=== PATIENT | female | born 1950 | race Native Hawaiian/Other Pacific Islander ===

== ENCOUNTER 2017-03-22 22:56 | Inpatient (IN) | payer OTHER ==
[~2017-03-22] VITALS: Ht 160 cm; Wt 51.5 kg
[~2017-03-22 22:56] MED LIST: BENZ100C8 PO; DEXL60CA4 PO; DONE5TAB PO; DULO30CA OR; GABA300C2 PO; JENTADUETO1 TA1 OR; LISI10TA11 PO; LOVASTATIN20 MG OR; LYRICA50 MG OR; METFORMIN ER1000 MG PO; ROSU10TA PO
[2017-03-22 23:14] VITALS: BP 173/63; TEMP 97.8
[2017-03-22] MEDS ORDERED: AMOX875T8 PO (23:15)
[2017-03-22] MEDS ORDERED: DONE5TAB PO (23:16)
[2017-03-23] VITALS (9 sets, daily range): BP systolic 121–165; BP diastolic 60–92; TEMP 98–98.7; Ht 160 cm; Wt 51.5 kg
[2017-03-23 00:46] LABS: PLATELET COUNT 217 K/uL (152-353)
[2017-03-23 01:24] LABS: POTASSIUM 3.5 mmol/L (3.6-5.2)
[2017-03-24] VITALS: BP 98/53; TEMP 99.1
[2017-03-24 04:00] VITALS: BP 126/56; TEMP 99.5
[2017-03-24 05:16] LABS: PLATELET COUNT 210 K/uL (152-353)
[2017-03-24 05:22] LABS: POTASSIUM 3.7 mmol/L (3.6-5.2); SODIUM 138 mmol/L (136-145)
[2017-03-24 08:00] VITALS: BP 112/67; TEMP 98.6
[2017-03-24 12:00] VITALS: BP 136/67; TEMP 99
[2017-03-24 16:00] VITALS: BP 149/85; TEMP 97.8
[2017-03-24 20:00] VITALS: BP 108/67; BP 145/71; TEMP 98.7; TEMP 98.8
[2017-03-25] VITALS: BP 131/56; TEMP 98.8
[2017-03-25 04:00] VITALS: BP 158/71; TEMP 98.8
[2017-03-25 06:00] LABS: PLATELET COUNT 211 K/uL (152-353)
[2017-03-25 06:21] LABS: POTASSIUM 3.6 mmol/L (3.6-5.2); SODIUM 137 mmol/L (136-145)
[2017-03-25 08:00] VITALS: BP 137/46; TEMP 98.7
[2017-03-25 12:00] VITALS: BP 154/60; TEMP 98.6
[2017-04-19] MEDS ORDERED: METFORMIN ER1000 MG PO (18:18)
== END 2017-03-25 13:35 | disposition home or self-care (01) | DRG 690 ==
LOC: ED 22:56 → MED/SURG 03-23 01:34
PROVIDERS: Family Medicine; ADMIT Specialist
DX: N39.0 Urinary tract infection, site not specified (principal); N30.01 Acute cystitis with hematuria; E13.65 Other specified diabetes mellitus with hyperglycemia; R11.11 Vomiting without nausea; F03.90 Unspecified dementia, unspecified severity, without behavioral disturbance, psychotic disturbance, mood disturbance, and anxiety; B96.20 Unspecified Escherichia coli [E. coli] as the cause of diseases classified elsewhere; N10 Acute pyelonephritis
CPT/HCPCS: 36415; 80048; 80053; 81000; 82533; 82607; 82947; 82948; 83036; 83735; 84100; 84443; 85027; 87040; 87077; 87086; 87088; 87186; 93005; 96365; 96372; 96375; 99284; J0690; J0696; J1720; J1815; J2550; J3411; J3475; J3490

== ENCOUNTER 2017-04-23 16:55 | Inpatient (IN) | payer OTHER ==
[~2017-04-23] VITALS: Ht 154.9 cm; Wt 53.6 kg
[~2017-04-23 16:55] MED LIST changes: +AMOX875T8 PO
[2017-04-23 17:09] VITALS: BP 166/92; TEMP 98.3
[2017-04-23 17:36] LABS: PLATELET COUNT 269 K/uL (152-353)
[2017-04-23 17:42] LABS: POTASSIUM 3.7 mmol/L (3.6-5.2)
[2017-04-23 19:35] VITALS: BP 130/56; TEMP 98.4
[2017-04-23 21:00] VITALS: BP 151/67; TEMP 97
[2017-04-23 21:59] VITALS: BP 151/67; TEMP 98.2; Ht 154.9 cm; Wt 53.6 kg
[2017-04-23 22:00] VITALS: BP 135/85
[2017-04-23 23:00] VITALS: BP 150/91
[2017-04-24] VITALS (13 sets, daily range): BP systolic 104–170; BP diastolic 43–75; TEMP 97.3–98.4
[2017-04-24 05:28] LABS: PLATELET COUNT 309 K/uL (152-353)
[2017-04-24 05:44] LABS: POTASSIUM 3.1 mmol/L (3.6-5.2)
[2017-04-24] MEDS ORDERED: GABA300C2 PO (18:16)
[2017-04-24] MEDS ORDERED: DONE5TAB PO (18:20)
[2017-04-25] VITALS (11 sets, daily range): BP systolic 137–161; BP diastolic 60–72; TEMP 98.5–99.1
[2017-04-25 06:38] LABS: PLATELET COUNT 300 K/uL (152-353)
[2017-04-25 07:40] LABS: POTASSIUM 3.8 mmol/L (3.6-5.2)
[2017-04-26 00:50] VITALS: BP 147/66; TEMP 98.5
[2017-04-26 04:00] VITALS: BP 151/62; TEMP 98.5
[2017-04-26 06:14] LABS: POTASSIUM 3.4 mmol/L (3.6-5.2)
[2017-04-26 06:33] LABS: PLATELET COUNT 274 K/uL (152-353)
[2017-04-26 08:00] VITALS: BP 162/73; TEMP 98.8
[2017-04-26 11:50] VITALS: BP 150/71; TEMP 98.6
[2017-04-26 16:00] VITALS: BP 149/58; TEMP 98.6
[2017-04-26 20:00] VITALS: BP 119/42; TEMP 98.5
[2017-04-27] VITALS: BP 132/47; TEMP 98.2
[2017-04-27 04:00] VITALS: BP 128/84; TEMP 98.3
[2017-04-27 06:20] LABS: PLATELET COUNT 254 K/uL (152-353)
[2017-04-27 06:39] LABS: POTASSIUM 3.6 mmol/L (3.6-5.2)
[2017-04-27 08:00] VITALS: BP 167/67; TEMP 98.6
[2017-04-27 12:00] VITALS: BP 139/62; TEMP 98.6
[2017-04-27] MEDS ORDERED: ALTOPREV20 MG PO (17:32)
[2017-04-27] MEDS ORDERED: NYST100016 TOP (19:56)
[2017-04-27] MEDS ORDERED: RISP0.25 PO (20:00)
[2017-04-27] MEDS ORDERED: ENOX40IN SC (20:01)
[2017-04-27] MEDS ORDERED: INSUINJP SC (20:04)
[2017-04-27] MEDS ORDERED: BENADRYL 50M50 MG/ML IV (20:06)
[2017-04-27] MEDS ORDERED: ONDA2INJ2 IV (20:07)
[2017-04-27] MEDS ORDERED: THIAMINE IJ (20:10)
== END 2017-04-27 18:28 | disposition other institution (70) | DRG 689 ==
LOC: ED 16:55 → ICU 18:35 → MED/SURG 04-25 15:19
PROVIDERS: ADMIT Family Medicine
DX: N39.0 Urinary tract infection, site not specified (principal); E11.00 Type 2 diabetes mellitus with hyperosmolarity without nonketotic hyperglycemic-hyperosmolar coma (NKHHC); E46 Unspecified protein-calorie malnutrition; B96.20 Unspecified Escherichia coli [E. coli] as the cause of diseases classified elsewhere; E86.0 Dehydration; F03.90 Unspecified dementia, unspecified severity, without behavioral disturbance, psychotic disturbance, mood disturbance, and anxiety; B35.4 Tinea corporis; L29.8 Other pruritus
CPT/HCPCS: 36415; 36591; 36600; 74022; 80053; 81000; 81002; 82805; 82947; 82948; 82962; 83735; 83880; 84100; 85027; 87077; 87086; 87088; 87186; 93005; 96372; 99284; J1200; J1650; J1815; J1940; J3475; J3480; J3490

== ENCOUNTER 2017-05-12 20:18 | Emergency (ER) | payer OTHER ==
[~2017-05-12] VITALS: Ht 162.6 cm; Wt 47.6 kg
[~2017-05-12 20:18] MED LIST changes: +ALTOPREV20 MG PO; +BENADRYL 50M50 MG/ML IV; +ENOX40IN SC; +INSUINJP SC; +NYST100016 TOP; +ONDA2INJ2 IV; +RISP0.25 PO; +THIAMINE IJ
[2017-05-12 21:00] LABS: PLATELET COUNT 263 K/uL (152-353)
[2017-05-12 21:05] LABS: POTASSIUM 3.8 mmol/L (3.6-5.2); SODIUM 134 mmol/L (136-145)
[2017-05-12] MEDS ORDERED: BUSP5TAB2 PO (21:09)
[2017-05-12] MEDS ORDERED: LIPITOR40 MG PO (21:10)
[2017-05-12] MEDS ORDERED: LEVO0.1224 PO (21:10)
[2017-05-12] MEDS ORDERED: RISP0.25 PO (21:10)
[2017-05-12] MEDS ORDERED: MEMANTINE HCL5 MG PO (21:11)
[2017-05-12] MEDS ORDERED: HYDROXYZ HCL50 MG PO (21:12)
[2017-05-12] MEDS ORDERED: PANTOPRAZOLE 40MG TA PO (21:13)
[2017-05-12] MEDS ORDERED: CELEXA10 MG PO (21:13)
[2017-05-12] MEDS ORDERED: METFORMIN HCL500 MG PO (21:13)
[2017-05-12] MEDS ORDERED: GABA300C2 PO (21:14)
[2017-05-12 21:23] LABS: PARTIAL THROMBOPLASTIN TIME 24.6 SECONDS (24.5-33.6)
[2017-05-12 21:52] VITALS: BP 172/80; TEMP 98.5
== END 2017-05-12 21:54 | disposition home or self-care (01) ==
LOC: ED 20:18
DX: R07.89 Other chest pain (principal); I44.4 Left anterior fascicular block
CPT/HCPCS: 36415; 80053; 82550; 83880; 84484; 85027; 85610; 85730; 93005; 99283

== ENCOUNTER 2017-05-26 11:14 | Inpatient (IN) | payer OTHER ==
[~2017-05-26] VITALS: Ht 154.9 cm; Wt 61.7 kg
[2017-05-26] VITALS (17 sets, daily range): BP systolic 87–119; BP diastolic 41–77; TEMP 98–99.1; Ht 154.9 cm; Wt 61.7 kg
[~2017-05-26 11:14] MED LIST changes: +BUSP5TAB2 PO; +CELEXA10 MG PO; +HYDROXYZ HCL50 MG PO; +LEVO0.1224 PO; +LIPITOR40 MG PO; +MEMANTINE HCL5 MG PO; +METFORMIN HCL500 MG PO; +PANTOPRAZOLE 40MG TA PO
[2017-05-26 12:06] LABS: PLATELET COUNT 207 K/uL (152-353)
[2017-05-26 12:41] LABS: POTASSIUM 3.3 mmol/L (3.6-5.2); SODIUM 134 mmol/L (136-145)
[2017-05-27] VITALS (23 sets, daily range): BP systolic 96–146; BP diastolic 51–129; TEMP 97.6–99.5
[2017-05-27 06:34] LABS: PLATELET COUNT 152 K/uL (152-353)
[2017-05-27 06:39] LABS: POTASSIUM 3.6 mmol/L (3.6-5.2)
[2017-05-28] VITALS (11 sets, daily range): BP systolic 131–160; BP diastolic 57–78; TEMP 97.8–99.7
[2017-05-28 12:47] LABS: PLATELET COUNT 166 K/uL (152-353)
[2017-05-28 13:14] LABS: POTASSIUM 3.4 mmol/L (3.6-5.2)
[2017-05-29] VITALS: BP 130/54; TEMP 100.8
[2017-05-29 04:00] VITALS: BP 129/61; TEMP 99.7
[2017-05-29 12:44] VITALS: BP 105/54; TEMP 98
[2017-05-29 17:08] VITALS: BP 133/67; TEMP 100.2
[2017-05-29 20:00] VITALS: BP 99/41; TEMP 99.9
[2017-05-30 00:08] VITALS: BP 98/65; TEMP 99.2
[2017-05-30 04:23] VITALS: BP 100/50; TEMP 99.7
[2017-05-30 06:32] LABS: PLATELET COUNT 186 K/uL (152-353)
[2017-05-30 06:43] LABS: POTASSIUM 3.5 mmol/L (3.6-5.2)
== END 2017-05-30 11:25 | disposition home or self-care (01) | DRG 872 ==
LOC: ED 11:14 → ICU 14:05 → MED/SURG 05-29 10:35
PROVIDERS: Internal Medicine; ADMIT Emergency Medicine
DX: A41.89 Other specified sepsis (principal); N39.0 Urinary tract infection, site not specified; E03.8 Other specified hypothyroidism; R41.82 Altered mental status, unspecified; I10 Essential (primary) hypertension; E11.9 Type 2 diabetes mellitus without complications; G30.8 Other Alzheimer's disease; F02.80 Dementia in other diseases classified elsewhere, unspecified severity, without behavioral disturbance, psychotic disturbance, mood disturbance, and anxiety; K21.9 Gastro-esophageal reflux disease without esophagitis; I95.89 Other hypotension; B96.1 Klebsiella pneumoniae [K. pneumoniae] as the cause of diseases classified elsewhere
CPT/HCPCS: 36415; 80048; 80053; 81000; 82550; 82553; 82948; 82962; 83735; 84484; 85027; 87077; 87086; 87088; 87186; 93005; 96365; 96366; 96372; 96374; 99285; J1815; J3475; J3490

== ENCOUNTER 2017-06-11 13:17 | Emergency (ER) | payer OTHER ==
[~2017-06-11] VITALS: Ht 154.9 cm; Wt 72.6 kg
[2017-06-11 13:22] VITALS: TEMP 98.4
[2017-06-11] MEDS ORDERED: DONE5TAB PO (13:41)
[2017-06-11 14:04] LABS: PLATELET COUNT 324 K/uL (152-353)
[2017-06-11 14:13] LABS: POTASSIUM 3.2 mmol/L (3.6-5.2)
[2017-06-11 15:26] VITALS: BP 136/74
== END 2017-06-11 15:27 | disposition home or self-care (01) ==
LOC: ED 13:17
DX: N11.8 Other chronic tubulo-interstitial nephritis (principal); L89.152 Pressure ulcer of sacral region, stage 2
CPT/HCPCS: 36415; 80053; 81000; 83880; 85027; 87086; 87088; 93005; 99283

== ENCOUNTER 2017-06-19 19:38 | Emergency (ER) | payer OTHER ==
[~2017-06-19] VITALS: Ht 154.9 cm; Wt 53.1 kg
[2017-06-19 19:52] VITALS: BP 142/64; TEMP 98.3
[2017-06-19] MEDS ORDERED: AMOX875T8 PO (20:12)
[2017-06-19 20:34] LABS: PLATELET COUNT 249 K/uL (152-353)
[2017-06-19 21:13] LABS: POTASSIUM 3.1 mmol/L (3.6-5.2)
== END 2017-06-19 21:03 | disposition left against medical advice (07) ==
LOC: ED 19:38
DX: E11.65 Type 2 diabetes mellitus with hyperglycemia (principal); M54.89 Other dorsalgia
CPT/HCPCS: 36415; 80053; 81000; 85027; 87088; 96372; 99283; J1815

== ENCOUNTER 2017-10-16 18:55 | Outpatient (CLI) | payer OTHER ==
[2017-10-16] MEDS ORDERED: GRALISE300 MG PO (19:36)
[2017-10-16] MEDS ORDERED: LEXAPRO10 MG PO (19:36)
== END 2017-10-16 19:00 | disposition short-term general hospital (02) ==
LOC: AMB 18:55
DX: E11.649 Type 2 diabetes mellitus with hypoglycemia without coma (principal)
CPT/HCPCS: A0425; A0427

== ENCOUNTER 2017-10-23 19:32 | Emergency (ER) | payer OTHER ==
[~2017-10-23] VITALS: Ht 160 cm; Wt 54.4 kg
[~2017-10-23 19:32] MED LIST changes: +GRALISE300 MG PO; +LEXAPRO10 MG PO
[2017-10-23 20:24] LABS: PLATELET COUNT 383 K/uL (152-353)
[2017-10-23 20:35] LABS: POTASSIUM 3.9 mmol/L (3.6-5.2)
[2017-10-23 22:08] VITALS: BP 142/91; TEMP 98.4
== END 2017-10-23 22:08 | disposition home or self-care (01) ==
LOC: ED 19:32
DX: E11.65 Type 2 diabetes mellitus with hyperglycemia (principal); F03.90 Unspecified dementia, unspecified severity, without behavioral disturbance, psychotic disturbance, mood disturbance, and anxiety; Z91.81 History of falling; W17.89XA Other fall from one level to another, initial encounter; Y92.89 Other specified places as the place of occurrence of the external cause
CPT/HCPCS: 36415; 80053; 83735; 85027; 99283

== ENCOUNTER 2017-10-30 21:38 | Inpatient (IN) | payer OTHER ==
[~2017-10-30] VITALS: Ht 160 cm; Wt 55.1 kg
[2017-10-30 21:42] VITALS: BP 195/95; TEMP 97.3
[2017-10-30 22:20] LABS: POTASSIUM 3.6 mmol/L (3.6-5.2)
[2017-10-30 22:52] LABS: PLATELET COUNT 348 K/uL (152-353)
[2017-10-31 03:24] VITALS: BP 184/73; TEMP 97.9; Ht 160 cm; Wt 55.1 kg
--- NOTE | 2017-10-31 03:52 | NUR ---
RECEIVED PT FROM ER BY STRETCHER. PT LETHARGIC DOES NOT RESPOND TO VOICE. DOES NOT OPEN EYES WHEN NAME IS CALLED. PT HAS LITTLE CATH PUT IN IN ER. PT HAS DECUBITUS ULCER ON COCCYX WHICH HAS BEEN DRESSED BY ER PRIOR TO BRINGING TO FLOOR. PT NOT ACCOMPANIED BY ANY FAMILY.
--- NOTE | 2017-10-31 03:56 | NUR ---
10/31/17 0255: DR THAKKAR CALLED HERE INQUIRING ABOUT PT. ORDERS RECEIVED.
[2017-10-31 04:00] VITALS: BP 184/73; TEMP 97.9
[2017-10-31 08:23] VITALS: BP 175/66; TEMP 98.1
[2017-10-31 12:00] VITALS: BP 169/67; TEMP 97.8
[2017-10-31 16:00] VITALS: BP 161/63; TEMP 97.6
[2017-10-31 20:00] VITALS: BP 142/92; TEMP 99.9
[2017-11-01] VITALS: BP 151/65; TEMP 99.3
[2017-11-01 04:00] VITALS: BP 172/66; TEMP 98.4
[2017-11-01 08:00] VITALS: BP 190/73; TEMP 98.1
[2017-11-01 12:00] VITALS: BP 170/76; TEMP 98
--- NOTE | 2017-11-01 13:00 | NUR ---
PT CHANGED WITH LOOSE STOOL NOTED. NEW LINENS CHANGED AND PT BATHED. NAD NOTED. PT TOLERATED WELL.
--- NOTE | 2017-11-01 13:00 | NUR ---
WOUND TO SACRUM ASSESSED. PINK EDGES NOTED WITH RED WOUND BED. DUODERM APPLIED. PT TOLERATED WELL.
[2017-11-01 16:00] VITALS: BP 174/74; TEMP 98.3
[2017-11-01 20:29] VITALS: BP 161/67; TEMP 98.9
[2017-11-02 00:14] VITALS: BP 163/76; TEMP 99
[2017-11-02 04:00] VITALS: BP 176/68; TEMP 98.6
[2017-11-02 05:18] LABS: PLATELET COUNT 255 K/uL (152-353)
[2017-11-02 05:46] LABS: POTASSIUM 3.7 mmol/L (3.6-5.2)
[2017-11-02 08:00] VITALS: BP 128/49; TEMP 98.9
[2017-11-02 12:00] VITALS: BP 183/80; TEMP 97.9
[2017-11-02 16:00] VITALS: BP 186/86; TEMP 98.7
--- NOTE | 2017-11-02 18:56 | NUR ---
AT 1123 THIS AM PT HAD MASSIVE LOOSE LIQUID BROWN BM. PT WAS CLEANSED VERY WELL ALONG WITH FULL BED BATH. STAGE 1 DECUBITIS TO SACRAM WAS CLEANSED WELL AND IRRIGATED WITH STERILE 0.9% NS AND AIR DRIED THEN DUODERM APPLIED. ATTENDS PLACED ON PT WELL ALL CLEAN LINENS AND DRAW SHEET WITH CHUX. CALL LIGHT WITHIN REACH AND NO COMPLAINTS NOTED AT THIS TIME.
[2017-11-02 20:00] VITALS: BP 182/76; TEMP 98.1
[2017-11-03] VITALS: BP 192/72; TEMP 99.2
[2017-11-03 04:00] VITALS: BP 163/63; TEMP 99.6
[2017-11-03 08:00] VITALS: BP 174/74; TEMP 98.7
--- NOTE | 2017-11-03 11:24 | NUR ---
PATIENT SON HAD BEEN IN CONTACT THE PCP AND THE [facility] CONCERNING PRISON PLACEMENT. THE DECISION WAS MADE TO MOVE THE PATIENT TO THE [facility] FOR DETENTION CARE PLACEMENT.
[2017-11-03 12:00] VITALS: BP 172/68; TEMP 99.6
--- NOTE | 2017-11-03 14:04 | NUR ---
1330 RESPORT CALLED TO HERNAN AT [facility]. [id number] PT TANSFERRED TO [facility] VIA BED. ASSISTED TO ROOM AND BED. PT TOLERATED WELL.
== END 2017-11-03 13:45 | DRG 57 ==
LOC: ED 21:38 → MED/SURG 10-31 01:50
PROVIDERS: Internal Medicine
DX: G30.8 Other Alzheimer's disease (principal); N39.0 Urinary tract infection, site not specified; R41.82 Altered mental status, unspecified; F02.80 Dementia in other diseases classified elsewhere, unspecified severity, without behavioral disturbance, psychotic disturbance, mood disturbance, and anxiety; E11.42 Type 2 diabetes mellitus with diabetic polyneuropathy; E03.8 Other specified hypothyroidism; K21.9 Gastro-esophageal reflux disease without esophagitis; E78.00 Pure hypercholesterolemia, unspecified; F41.8 Other specified anxiety disorders; D64.89 Other specified anemias; L89.152 Pressure ulcer of sacral region, stage 2; R10.13 Epigastric pain
CPT/HCPCS: 36415; 51702; 80053; 80307; 81000; 82948; 83605; 83735; 85027; 87040; 94760; 96372; 99283; J1650; J1815; J3411; J3490

== ENCOUNTER 2017-11-03 15:05 | Inpatient (IN) | payer OTHER ==
[2017-11-04 05:48] LABS: PLATELET COUNT 238 K/uL (152-353)
[2017-11-04 06:21] LABS: POTASSIUM 3.8 mmol/L (3.6-5.2)
[2017-11-14 17:28] LABS: PLATELET COUNT 223 K/uL (152-353)
[2017-11-14 17:45] LABS: POTASSIUM 4.4 mmol/L (3.6-5.2)
== END 2017-11-26 10:21 | disposition still patient (30) ==
LOC: PAVB 15:05
PROVIDERS: ADMIT Internal Medicine
DX: F03.91 Unspecified dementia, unspecified severity, with behavioral disturbance (principal); R48.8 Other symbolic dysfunctions; M25.512 Pain in left shoulder; M62.81 Muscle weakness (generalized); N39.0 Urinary tract infection, site not specified; E11.42 Type 2 diabetes mellitus with diabetic polyneuropathy; E78.00 Pure hypercholesterolemia, unspecified; I10 Essential (primary) hypertension; M25.012 Hemarthrosis, left shoulder
CPT/HCPCS: 80053; 80061; 81000; 82306; 83036; 84443; 85027; 87077; 87081; 87086; 87088; 87186

== ENCOUNTER 2017-11-26 10:31 | Inpatient (IN) | payer OTHER ==
[2017-12-09] MEDS ORDERED: LIPITOR40 MG PO (00:21)
[2017-12-09] MEDS ORDERED: [UNRECOGNIZED DRUG - OTHER] PO (00:23)
[2017-12-09] MEDS ORDERED: CALCIUM PO (00:23)
[2017-12-09] MEDS ORDERED: INSUINJP SC (00:24)
[2017-12-09] MEDS ORDERED: METF500T PO (00:25)
[2017-12-09] MEDS ORDERED: NAMZARIC 28-101 CAP PO (00:26)
[2017-12-09] MEDS ORDERED: OMEP40CA PO (00:27)
[2017-12-09] MEDS ORDERED: MULTIVITAMIN (00:28)
[2017-12-09] MEDS ORDERED: MIRALAX3350 N1 (00:29)
[2017-12-09] MEDS ORDERED: VITAMIN C1 CH1 PO (00:30)
[2017-12-09] MEDS ORDERED: ZINC220 MG (00:32)
[2017-12-09] MEDS ORDERED: PROTEINE1 PO (00:33)
[2017-12-09] MEDS ORDERED: GLUCERN1 (00:37)
[2017-12-09] MEDS ORDERED: ASCO500T18 PO (00:41)
== END 2017-12-26 09:37 | disposition still patient (30) ==
LOC: PAVB 10:31
PROVIDERS: ADMIT Internal Medicine
DX: F03.91 Unspecified dementia, unspecified severity, with behavioral disturbance (principal); R48.8 Other symbolic dysfunctions; M25.512 Pain in left shoulder; M62.81 Muscle weakness (generalized); N39.0 Urinary tract infection, site not specified; E11.42 Type 2 diabetes mellitus with diabetic polyneuropathy; E78.00 Pure hypercholesterolemia, unspecified; I10 Essential (primary) hypertension; M25.012 Hemarthrosis, left shoulder

== ENCOUNTER 2017-12-08 14:35 | Inpatient (IN) | payer OTHER ==
[~2017-12-08] VITALS: Ht 162.6 cm; Wt 54.0 kg
[2017-12-08 14:35] VITALS: BP 159/59; TEMP 98
[2017-12-08 15:07] LABS: PLATELET COUNT 206 K/uL (152-353)
[2017-12-08 15:25] LABS: POTASSIUM 4.5 mmol/L (3.6-5.2); SODIUM 138 mmol/L (136-145)
[2017-12-08 22:11] VITALS: BP 182/69; TEMP 98.9; Ht 162.6 cm; Wt 54.0 kg
[2017-12-09] VITALS: BP 154/67; TEMP 98.8
[2017-12-09] MEDS ORDERED: LIPITOR40 MG PO (00:21)
[2017-12-09] MEDS ORDERED: CALCIUM PO (00:23)
[2017-12-09] MEDS ORDERED: [UNRECOGNIZED DRUG - OTHER] PO (00:23)
[2017-12-09] MEDS ORDERED: INSUINJP SC (00:24)
[2017-12-09] MEDS ORDERED: METF500T PO (00:25)
[2017-12-09] MEDS ORDERED: NAMZARIC 28-101 CAP PO (00:26)
[2017-12-09] MEDS ORDERED: OMEP40CA PO (00:27)
[2017-12-09] MEDS ORDERED: MULTIVITAMIN (00:28)
[2017-12-09] MEDS ORDERED: MIRALAX3350 N1 (00:29)
[2017-12-09] MEDS ORDERED: VITAMIN C1 CH1 PO (00:30)
[2017-12-09] MEDS ORDERED: ZINC220 MG (00:32)
[2017-12-09] MEDS ORDERED: PROTEINE1 PO (00:33)
[2017-12-09] MEDS ORDERED: GLUCERN1 (00:37)
[2017-12-09] MEDS ORDERED: ASCO500T18 PO (00:41)
[2017-12-09 03:50] VITALS: BP 173/78; TEMP 98.9
[2017-12-09 08:03] VITALS: BP 159/58; TEMP 98.2
[2017-12-09 12:22] VITALS: BP 134/57; TEMP 98.9
[2017-12-09 16:00] VITALS: BP 147/63; TEMP 98.4
[2017-12-09 20:08] VITALS: BP 153/64; TEMP 98.1
[2017-12-10] VITALS: BP 148/63; TEMP 97.7
[2017-12-10 04:25] VITALS: BP 172/60; TEMP 98
[2017-12-10 08:00] VITALS: BP 152/90; TEMP 98
[2017-12-10 12:00] VITALS: BP 164/63; TEMP 99.2
[2017-12-10 16:00] VITALS: BP 161/65; TEMP 97.3
[2017-12-10 20:12] VITALS: BP 183/72; TEMP 99
[2017-12-11 00:26] VITALS: BP 160/75; TEMP 98.1
[2017-12-11 04:00] VITALS: BP 155/59; TEMP 99
[2017-12-11 08:00] VITALS: BP 149/55; TEMP 98.7
[2017-12-11 12:00] VITALS: BP 157/58; TEMP 98.8
[2017-12-11 16:00] VITALS: BP 165/63; BP 206/74; TEMP 98.2; TEMP 98.4
[2017-12-11 20:03] VITALS: BP 140/58; TEMP 98.4
[2017-12-12] VITALS: BP 166/62; TEMP 99.3
[2017-12-12 04:00] VITALS: BP 172/69; TEMP 97.4
[2017-12-12 05:19] LABS: PLATELET COUNT 188 K/uL (152-353)
[2017-12-12 05:24] LABS: POTASSIUM 3.5 mmol/L (3.6-5.2)
[2017-12-12 08:00] VITALS: BP 137/54; TEMP 98.8
[2017-12-12 12:00] VITALS: BP 151/58
== END 2017-12-12 13:00 | DRG 100 ==
LOC: ED 14:35 → MED/SURG 17:45
PROVIDERS: Internal Medicine
DX: G40.89 Other seizures (principal); G93.49 Other encephalopathy; N39.0 Urinary tract infection, site not specified; G30.8 Other Alzheimer's disease; F02.80 Dementia in other diseases classified elsewhere, unspecified severity, without behavioral disturbance, psychotic disturbance, mood disturbance, and anxiety; I10 Essential (primary) hypertension; K21.9 Gastro-esophageal reflux disease without esophagitis; E03.8 Other specified hypothyroidism; E11.65 Type 2 diabetes mellitus with hyperglycemia; B96.20 Unspecified Escherichia coli [E. coli] as the cause of diseases classified elsewhere
CPT/HCPCS: 36415; 80048; 80053; 81000; 84484; 85027; 87077; 87086; 87088; 87186; 93005; J0696; J0744; J1650; J1815; J3490

== ENCOUNTER 2017-12-14 15:40 | Outpatient (CLI) | payer OTHER ==
[~2017-12-14 15:40] MED LIST changes: +ASCO500T18 PO; +CALCIUM PO; +GLUCERN1; +METF500T PO; +MIRALAX3350 N1; +MULTIVITAMIN; +NAMZARIC 28-101 CAP PO; +OMEP40CA PO; +PROTEINE1 PO; +VITAMIN C1 CH1 PO; +ZINC220 MG; +[UNRECOGNIZED DRUG - OTHER] PO
== END 2017-12-14 19:44 | disposition home or self-care (01) ==
LOC: RESP 15:40
DX: R56.9 Unspecified convulsions (principal)

== ENCOUNTER 2017-12-16 04:26 | Outpatient (CLI) | payer OTHER | END 2017-12-16 22:14 | disposition home or self-care (01) | LOC: LAB 04:26 | DX: E55.9 Vitamin D deficiency, unspecified (principal) | CPT/HCPCS: 82306 ==

== ENCOUNTER 2017-12-26 06:19 | Outpatient (CLI) | payer OTHER | END 2017-12-26 19:50 | disposition home or self-care (01) | LOC: LAB 06:19 | DX: Z51.81 Encounter for therapeutic drug level monitoring (principal) | CPT/HCPCS: 80185 ==

== ENCOUNTER 2017-12-26 12:20 | Inpatient (IN) | payer OTHER | END 2018-01-26 08:50 | disposition still patient (30) | LOC: PAVB 12:20 | PROVIDERS: ADMIT Internal Medicine ==

== ENCOUNTER 2018-01-26 09:15 | Inpatient (IN) | payer OTHER | END 2018-02-25 08:36 | disposition still patient (30) | LOC: PAVB 09:15 | PROVIDERS: ADMIT Internal Medicine ==

== ENCOUNTER 2018-01-31 04:23 | Outpatient (CLI) | payer OTHER | END 2018-01-31 22:11 | disposition home or self-care (01) | LOC: LAB 04:23 | DX: E11.9 Type 2 diabetes mellitus without complications (principal) | CPT/HCPCS: 36415; 83036 ==

== ENCOUNTER 2018-02-15 06:11 | Outpatient (CLI) | payer OTHER | END 2018-02-15 19:34 | disposition home or self-care (01) | LOC: LAB 06:11 | DX: G40.909 Epilepsy, unspecified, not intractable, without status epilepticus (principal) | CPT/HCPCS: 80185 ==

== ENCOUNTER 2018-02-21 13:40 | Outpatient (CLI) | payer OTHER | END 2018-02-21 21:08 | disposition home or self-care (01) | LOC: LAB 13:40 | DX: Z51.81 Encounter for therapeutic drug level monitoring (principal) | CPT/HCPCS: 80185 ==

== ENCOUNTER 2018-02-25 08:46 | Inpatient (IN) | payer OTHER | END 2018-03-28 11:08 | disposition still patient (30) | LOC: PAVB 08:46 | PROVIDERS: ADMIT Internal Medicine ==

== ENCOUNTER 2018-03-08 05:45 | Outpatient (CLI) | payer OTHER | END 2018-03-08 22:58 | disposition home or self-care (01) | LOC: LAB 05:45 | DX: Z51.81 Encounter for therapeutic drug level monitoring (principal) | CPT/HCPCS: 36415; 80185 ==

== ENCOUNTER 2018-03-28 11:39 | Inpatient (IN) | payer OTHER | END 2018-04-28 13:45 | disposition still patient (30) | LOC: PAVB 11:39 | PROVIDERS: ADMIT Internal Medicine ==

== ENCOUNTER 2018-03-29 11:30 | Outpatient (CLI) | payer OTHER | END 2018-03-29 21:35 | disposition home or self-care (01) | LOC: LAB 11:30 | DX: G40.909 Epilepsy, unspecified, not intractable, without status epilepticus (principal) | CPT/HCPCS: 80185 ==

== ENCOUNTER 2018-04-28 13:56 | Inpatient (IN) | payer OTHER | END 2018-05-26 11:42 | disposition still patient (30) | LOC: PAVB 13:56 | PROVIDERS: ADMIT Internal Medicine ==

== ENCOUNTER 2018-04-29 05:23 | Outpatient (CLI) | payer OTHER | END 2018-04-29 23:01 | disposition home or self-care (01) | LOC: LAB 05:23 | DX: E11.9 Type 2 diabetes mellitus without complications (principal); Z79.899 Other long term (current) drug therapy | CPT/HCPCS: 80185; 83036 ==

== ENCOUNTER 2018-05-02 09:54 | Outpatient (CLI) | payer OTHER ==
[2018-05-02 10:35] LABS: PLATELET COUNT 215 K/uL (152-353)
[2018-05-02 10:45] LABS: POTASSIUM 4.4 mmol/L (3.6-5.2)
== END 2018-05-02 19:46 | disposition home or self-care (01) ==
LOC: LAB 09:54
PROVIDERS: Internal Medicine
DX: I10 Essential (primary) hypertension (principal); E11.21 Type 2 diabetes mellitus with diabetic nephropathy; E03.9 Hypothyroidism, unspecified; E55.9 Vitamin D deficiency, unspecified
CPT/HCPCS: 80053; 82306; 83036; 84443; 85027

== ENCOUNTER 2018-05-26 11:58 | Inpatient (IN) | payer OTHER ==
[2018-06-09] MEDS ORDERED: PROTEINE1 PO (00:56)
[2018-06-09] MEDS ORDERED: GLUCERNA CAL PO (00:59)
[2018-06-09] MEDS ORDERED: PHENYTOIN EX100 MG PO (01:10)
[2018-06-09] MEDS ORDERED: [UNRECOGNIZED DRUG - OTHER] PO ×2 (01:14→01:15)
[2018-06-09] MEDS ORDERED: LEXAPRO10 MG PO (01:51)
[2018-06-09] MEDS ORDERED: LEVOXYL PO (01:53)
[2018-06-09] MEDS ORDERED: NAMZARIC 28-101 CAP PO (01:58)
== END 2018-06-26 11:36 | disposition still patient (30) ==
LOC: PAVB 11:58
PROVIDERS: ADMIT Internal Medicine
CPT/HCPCS: 81000; 87088

== ENCOUNTER 2018-06-08 20:47 | Inpatient (IN) | payer OTHER ==
[~2018-06-08] VITALS: Ht 160 cm; Wt 54.7 kg
[2018-06-09 00:19] LABS: PLATELET COUNT 265 K/uL (152-353)
[2018-06-09 00:32] VITALS: BP 128/57; TEMP 98.8; Ht 160 cm; Wt 54.7 kg
[2018-06-09 00:32] LABS: POTASSIUM 4.8 mmol/L (3.6-5.2)
[2018-06-09] MEDS ORDERED: PROTEINE1 PO (00:56)
[2018-06-09] MEDS ORDERED: GLUCERNA CAL PO (00:59)
[2018-06-09] MEDS ORDERED: PHENYTOIN EX100 MG PO (01:10)
[2018-06-09] MEDS ORDERED: [UNRECOGNIZED DRUG - OTHER] PO ×2 (01:14→01:15)
[2018-06-09] MEDS ORDERED: LEXAPRO10 MG PO (01:51)
[2018-06-09] MEDS ORDERED: LEVOXYL PO (01:53)
[2018-06-09] MEDS ORDERED: NAMZARIC 28-101 CAP PO (01:58)
[2018-06-09 04:00] VITALS: BP 141/54; TEMP 98.7
[2018-06-09 08:11] VITALS: BP 138/59; TEMP 97.9
[2018-06-09 12:15] VITALS: BP 155/68; TEMP 100.1
[2018-06-09 16:07] VITALS: BP 155/66; TEMP 98.8
[2018-06-09 20:07] VITALS: BP 156/71; TEMP 99.1
[2018-06-10 00:10] VITALS: BP 154/74; TEMP 97
[2018-06-10 04:00] VITALS: BP 147/56; TEMP 97.1
[2018-06-10 08:09] VITALS: BP 157/70; TEMP 98
[2018-06-10 12:11] VITALS: BP 158/66; TEMP 98.2
[2018-06-10 16:02] VITALS: BP 153/65; TEMP 98.5
[2018-06-10 20:00] VITALS: BP 153/69; TEMP 98.4
[2018-06-11] VITALS: BP 133/57; TEMP 98.3
[2018-06-11 04:00] VITALS: BP 135/56; TEMP 98.4
[2018-06-11 08:00] VITALS: BP 133/64; TEMP 98.6
[2018-06-11 12:00] VITALS: BP 133/64; BP 99/63; TEMP 97.9; TEMP 98.6
[2018-06-11 16:00] VITALS: BP 109/73; TEMP 98.8
[2018-06-11 20:00] VITALS: BP 158/68; TEMP 98.9
[2018-06-12] VITALS: BP 147/66; TEMP 97.7
[2018-06-12 04:00] VITALS: BP 14/65; TEMP 98.4
[2018-06-12 08:00] VITALS: BP 103/76; TEMP 98.3
[2018-06-12 12:00] VITALS: BP 152/76; TEMP 98.2
[2018-06-12 16:00] VITALS: BP 153/69; TEMP 98
[2018-06-12 20:00] VITALS: BP 162/71; TEMP 98.2
[2018-06-13] VITALS: BP 145/89; TEMP 98.7
[2018-06-13 04:00] VITALS: BP 153/77; TEMP 98.8
[2018-06-13 08:00] VITALS: BP 159/68; TEMP 98.1
[2018-06-13 16:00] VITALS: BP 134/61; TEMP 98.2
[2018-06-13 20:00] VITALS: BP 147/66; TEMP 98.6
[2018-06-14] VITALS: BP 147/68; TEMP 98.4
[2018-06-14 04:00] VITALS: BP 156/69; TEMP 98.8
[2018-06-14 08:00] VITALS: BP 169/72; TEMP 96.6
[2018-06-14 12:00] VITALS: BP 155/76; TEMP 98.3
== END 2018-06-14 13:50 | DRG 872 ==
LOC: LAB 20:47 → MED/SURG 23:31
PROVIDERS: ADMIT Internal Medicine
DX: A41.9 Sepsis, unspecified organism (principal); N39.0 Urinary tract infection, site not specified; B96.20 Unspecified Escherichia coli [E. coli] as the cause of diseases classified elsewhere; R41.82 Altered mental status, unspecified; G30.8 Other Alzheimer's disease; F02.80 Dementia in other diseases classified elsewhere, unspecified severity, without behavioral disturbance, psychotic disturbance, mood disturbance, and anxiety; I10 Essential (primary) hypertension; E11.9 Type 2 diabetes mellitus without complications
CPT/HCPCS: 80053; 81000; 83605; 85027; 87040; 87077; 87086; 87088; 87186; J1956; J0696; J2405; J3490

== ENCOUNTER 2018-06-26 11:48 | Inpatient (IN) | payer OTHER ==
[~2018-06-26 11:48] MED LIST changes: +GLUCERNA CAL PO; +LEVOXYL PO; +PHENYTOIN EX100 MG PO; +[UNRECOGNIZED DRUG - OTHER] PO
== END 2018-07-26 12:44 | disposition still patient (30) ==
LOC: PAVB 11:48
PROVIDERS: ADMIT Internal Medicine
CPT/HCPCS: 36415; 80185; 84443

== ENCOUNTER 2018-07-26 13:32 | Inpatient (IN) | payer OTHER | END 2018-08-26 08:41 | disposition still patient (30) | LOC: PAVB 13:32 | PROVIDERS: ADMIT Internal Medicine | DX: Z51.89 Encounter for other specified aftercare (principal) ==

== ENCOUNTER 2018-08-01 06:57 | Outpatient (CLI) | payer OTHER | END 2018-08-01 19:27 | disposition home or self-care (01) | LOC: LAB 06:57 | DX: E11.9 Type 2 diabetes mellitus without complications (principal) | CPT/HCPCS: 83036 ==

== ENCOUNTER 2018-08-26 08:51 | Inpatient (IN) | payer OTHER | END 2018-09-25 09:41 | disposition still patient (30) | LOC: PAVB 08:51 | PROVIDERS: ADMIT Internal Medicine ==

== ENCOUNTER 2018-08-27 19:20 | Inpatient (IN) | payer OTHER ==
[~2018-08-27] VITALS: Ht 160 cm; Wt 54.6 kg
[2018-08-27 19:20] VITALS: BP 134/58; TEMP 97.7
[2018-08-27 20:28] LABS: PLATELET COUNT 316 K/uL (152-353)
[2018-08-28] VITALS (9 sets, daily range): BP systolic 109–153; BP diastolic 48–93; TEMP 97.6–100.5; Ht 160 cm; Wt 54.6 kg
[2018-08-29] VITALS: BP 153/63; TEMP 100.5
[2018-08-29 04:11] VITALS: BP 145/69; TEMP 99.9
[2018-08-29 08:00] VITALS: BP 149/59; TEMP 100.2
[2018-08-29 12:00] VITALS: BP 185/81; TEMP 98.9
[2018-08-29 16:00] VITALS: BP 152/95; TEMP 98.6
[2018-08-29 20:00] VITALS: BP 188/84; TEMP 98.6
[2018-08-30] VITALS: BP 151/82; TEMP 98.5
[2018-08-30 04:00] VITALS: BP 180/73; TEMP 99.5
[2018-08-30 08:00] VITALS: BP 153/66; TEMP 98.9
[2018-08-30 12:00] VITALS: BP 142/69; TEMP 98.3
[2018-08-30 16:00] VITALS: BP 153/63; TEMP 99.8
[2018-08-30 20:00] VITALS: BP 165/60; TEMP 98.2
[2018-08-31] VITALS (7 sets, daily range): BP systolic 145–175; BP diastolic 51–75; TEMP 98.4–100.5
[2018-09-01 04:00] VITALS: BP 190/66; TEMP 98.9
[2018-09-01 08:00] VITALS: BP 158/72; TEMP 98.8
[2018-09-01 12:09] VITALS: BP 169/68; TEMP 98.4
[2018-09-01 16:05] VITALS: BP 154/69; TEMP 98.2
== END 2018-09-01 16:30 | DRG 690 ==
LOC: ED 19:20 → MED/SURG 08-28 01:15
PROVIDERS: Family Medicine; ADMIT Internal Medicine
DX: N39.0 Urinary tract infection, site not specified (principal); G40.802 Other epilepsy, not intractable, without status epilepticus; E89.0 Postprocedural hypothyroidism; G30.8 Other Alzheimer's disease; F02.80 Dementia in other diseases classified elsewhere, unspecified severity, without behavioral disturbance, psychotic disturbance, mood disturbance, and anxiety; E11.22 Type 2 diabetes mellitus with diabetic chronic kidney disease; I12.9 Hypertensive chronic kidney disease with stage 1 through stage 4 chronic kidney disease, or unspecified chronic kidney disease; N18.2 Chronic kidney disease, stage 2 (mild); B95.2 Enterococcus as the cause of diseases classified elsewhere
CPT/HCPCS: 36415; 80053; 80202; 81000; 83630; 85027; 87015; 87045; 87324; 87328; 87329; 87449; 87899; 96360; 96361; 96365; 96367; 96375; 99284; J1956; J3370; J3490

== ENCOUNTER 2018-09-25 09:54 | Inpatient (IN) | payer OTHER | END 2018-10-26 10:38 | disposition still patient (30) | LOC: PAVB 09:54 | PROVIDERS: ADMIT Internal Medicine ==

== ENCOUNTER 2018-10-01 11:26 | Outpatient (CLI) | payer OTHER | END 2018-10-01 23:59 | disposition home or self-care (01) | LOC: LAB 11:26 | DX: G40.909 Epilepsy, unspecified, not intractable, without status epilepticus (principal); R82.998 Other abnormal findings in urine | CPT/HCPCS: 80185; 81000 ==

== ENCOUNTER 2018-10-26 11:37 | Inpatient (IN) | payer OTHER | END 2018-11-26 16:29 | disposition still patient (30) | LOC: PAVB 11:37 | PROVIDERS: ADMIT Internal Medicine ==

== ENCOUNTER 2018-10-31 11:31 | Outpatient (CLI) | payer OTHER ==
[2018-10-31 12:57] LABS: POTASSIUM 4.4 mmol/L (3.6-5.2)
[2018-10-31 13:02] LABS: PLATELET COUNT 318 K/uL (152-353)
== END 2018-10-31 23:17 | disposition home or self-care (01) ==
LOC: LAB 11:31
PROVIDERS: Internal Medicine
DX: E11.42 Type 2 diabetes mellitus with diabetic polyneuropathy (principal); I10 Essential (primary) hypertension; E03.8 Other specified hypothyroidism; E55.9 Vitamin D deficiency, unspecified
CPT/HCPCS: 80053; 80061; 82306; 83036; 84443; 85027

== ENCOUNTER 2018-11-26 16:41 | Inpatient (IN) | payer OTHER | END 2018-12-26 09:35 | disposition still patient (30) | LOC: PAVB 16:41 | PROVIDERS: ADMIT Internal Medicine ==

== ENCOUNTER 2018-12-10 15:20 | Outpatient (CLI) | payer OTHER | END 2018-12-10 20:11 | disposition home or self-care (01) | LOC: LAB 15:20 | DX: R82.998 Other abnormal findings in urine (principal) | CPT/HCPCS: 81000; 87077; 87086; 87088; 87186 ==

== ENCOUNTER 2018-12-26 11:54 | Inpatient (IN) | payer OTHER | END 2019-01-26 11:13 | disposition still patient (30) | LOC: PAVB 11:54 | PROVIDERS: ADMIT Internal Medicine ==

== ENCOUNTER 2018-12-28 06:08 | Outpatient (CLI) | payer OTHER | END 2018-12-28 23:15 | disposition home or self-care (01) | LOC: LAB 06:08 | DX: Z51.81 Encounter for therapeutic drug level monitoring (principal) | CPT/HCPCS: 36415; 80185 ==

== ENCOUNTER 2019-01-26 12:02 | Inpatient (IN) | payer OTHER | END 2019-02-25 08:00 | disposition still patient (30) | LOC: PAVB 12:02 | PROVIDERS: ADMIT Internal Medicine ==

== ENCOUNTER 2019-01-29 09:16 | Outpatient (CLI) | payer OTHER | END 2019-01-29 19:13 | disposition home or self-care (01) | LOC: LAB 09:16 | DX: E11.9 Type 2 diabetes mellitus without complications (principal) | CPT/HCPCS: 83036 ==

== ENCOUNTER 2019-02-25 09:00 | Inpatient (IN) | payer OTHER | END 2019-03-28 09:04 | disposition still patient (30) | LOC: PAVB 09:00 | PROVIDERS: ADMIT Internal Medicine ==

== ENCOUNTER 2019-03-28 09:13 | Inpatient (IN) | payer OTHER | END 2019-04-28 09:59 | disposition still patient (30) | LOC: PAVB 09:13 | PROVIDERS: ADMIT Internal Medicine ==

== ENCOUNTER 2019-04-28 10:12 | Inpatient (IN) | payer OTHER | END 2019-05-27 13:18 | disposition still patient (30) | LOC: PAVB 10:12 | PROVIDERS: ADMIT Internal Medicine ==

== ENCOUNTER 2019-04-29 05:30 | Outpatient (CLI) | payer OTHER ==
[2019-04-29 06:43] LABS: PLATELET COUNT 286 K/uL (152-353)
[2019-04-29 07:10] LABS: POTASSIUM 4.7 mmol/L (3.6-5.2)
== END 2019-04-29 19:02 | disposition home or self-care (01) ==
LOC: LAB 05:30
PROVIDERS: Internal Medicine
DX: I10 Essential (primary) hypertension (principal); D64.89 Other specified anemias; E11.42 Type 2 diabetes mellitus with diabetic polyneuropathy; Z01.812 Encounter for preprocedural laboratory examination
CPT/HCPCS: 80053; 80185; 82306; 83036; 84443; 85027

== ENCOUNTER 2019-05-03 07:43 | Day surgery (SDC) | payer OTHER | END 2019-05-03 11:00 | LOC: OR 07:43 | PROC: 0DH63UZ Insertion of Feeding Device into Stomach, Percutaneous Approach (ICD-10-PCS; principal; 2019-05-03) | DX: G30.8 Other Alzheimer's disease (principal); F02.80 Dementia in other diseases classified elsewhere, unspecified severity, without behavioral disturbance, psychotic disturbance, mood disturbance, and anxiety; R13.19 Other dysphagia | CPT/HCPCS: J2001; J2405; J2704 ==

== ENCOUNTER 2019-05-14 17:04 | Outpatient (CLI) | payer OTHER | END 2019-05-14 21:31 | disposition home or self-care (01) | LOC: LAB 17:04 | DX: K94.22 Gastrostomy infection (principal) | CPT/HCPCS: 87070; 87205 ==

== ENCOUNTER 2019-05-22 05:31 | Outpatient (CLI) | payer OTHER | END 2019-05-22 19:49 | disposition home or self-care (01) | LOC: LAB 05:31 | DX: N39.0 Urinary tract infection, site not specified (principal) | CPT/HCPCS: 81000 ==

== ENCOUNTER 2019-05-27 13:33 | Inpatient (IN) | payer OTHER | END 2019-06-27 09:46 | disposition still patient (30) | LOC: PAVB 13:33 | PROVIDERS: ADMIT Internal Medicine ==

== ENCOUNTER 2019-06-27 11:12 | Inpatient (IN) | payer OTHER | END 2019-07-27 09:07 | disposition still patient (30) | LOC: PAVB 11:12 | PROVIDERS: ADMIT Internal Medicine ==

== ENCOUNTER 2019-07-03 04:51 | Outpatient (CLI) | payer OTHER | END 2019-07-03 19:08 | disposition home or self-care (01) | LOC: LAB 04:51 | DX: Z51.81 Encounter for therapeutic drug level monitoring (principal); G40.909 Epilepsy, unspecified, not intractable, without status epilepticus | CPT/HCPCS: 36415; 80185 ==

== ENCOUNTER 2019-07-27 11:03 | Inpatient (IN) | payer OTHER | END 2019-08-27 09:15 | disposition still patient (30) | LOC: PAVB 11:03 | PROVIDERS: ADMIT Internal Medicine ==

== ENCOUNTER 2019-07-31 08:59 | Outpatient (CLI) | payer OTHER | END 2019-07-31 19:07 | disposition home or self-care (01) | LOC: LAB 08:59 | DX: E11.42 Type 2 diabetes mellitus with diabetic polyneuropathy (principal) | CPT/HCPCS: 83036 ==

== ENCOUNTER 2019-08-03 17:41 | Outpatient (CLI) | payer OTHER | END 2019-08-03 22:08 | disposition home or self-care (01) | LOC: LAB 17:41 | DX: N39.0 Urinary tract infection, site not specified (principal) | CPT/HCPCS: 81000; 87077; 87086; 87088; 87185; 87186 ==

== ENCOUNTER 2019-08-06 16:14 | Outpatient (CLI) | payer OTHER ==
[2019-08-06 16:52] LABS: PLATELET COUNT 185 K/uL (152-353)
[2019-08-06 16:59] LABS: POTASSIUM 5.5 mmol/L (3.6-5.2)
== END 2019-08-06 22:22 | disposition home or self-care (01) ==
LOC: LAB 16:14
PROVIDERS: Internal Medicine
DX: U07.1 COVID-19 (principal); Z79.899 Other long term (current) drug therapy
CPT/HCPCS: 80053; 85027; 85379; 86140; 93005

== ENCOUNTER 2019-08-27 11:11 | Inpatient (IN) | payer OTHER | END 2019-09-26 10:23 | disposition still patient (30) | LOC: PAVB 11:11 | PROVIDERS: ADMIT Internal Medicine | CPT/HCPCS: 87635; U0002 ==

== ENCOUNTER 2019-09-26 11:43 | Inpatient (IN) | payer OTHER | END 2019-10-27 09:20 | disposition still patient (30) | LOC: PAVB 11:43 | PROVIDERS: ADMIT Internal Medicine ==

== ENCOUNTER 2019-10-27 10:01 | Inpatient (IN) | payer OTHER | END 2019-11-27 14:01 | disposition still patient (30) | LOC: PAVB 10:01 → PAVC 11-05 09:29 | PROVIDERS: ADMIT Internal Medicine ==

== ENCOUNTER 2019-10-29 07:17 | Outpatient (CLI) | payer OTHER ==
[2019-10-29 08:06] LABS: PLATELET COUNT 279 K/uL (152-353)
[2019-10-29 08:34] LABS: POTASSIUM 4.2 mmol/L (3.6-5.2)
== END 2019-10-29 22:33 | disposition home or self-care (01) ==
LOC: LAB 07:17
PROVIDERS: Internal Medicine
DX: H35.033 Hypertensive retinopathy, bilateral (principal); E03.8 Other specified hypothyroidism; E78.00 Pure hypercholesterolemia, unspecified; I10 Essential (primary) hypertension; E78.49 Other hyperlipidemia; E11.42 Type 2 diabetes mellitus with diabetic polyneuropathy; D64.89 Other specified anemias; E86.0 Dehydration
CPT/HCPCS: 80053; 80061; 82306; 83036; 84443; 85027

== ENCOUNTER 2019-11-27 14:40 | Inpatient (IN) | payer OTHER | END 2019-12-27 14:09 | disposition still patient (30) | LOC: PAVC 14:40 | PROVIDERS: ADMIT Internal Medicine | CPT/HCPCS: 80185 ==

== ENCOUNTER 2019-12-27 09:18 | Outpatient (CLI) | payer OTHER | END 2019-12-27 19:48 | disposition home or self-care (01) | LOC: LAB 09:18 | DX: G40.909 Epilepsy, unspecified, not intractable, without status epilepticus (principal) ==

== ENCOUNTER 2019-12-27 15:04 | Inpatient (IN) | payer OTHER | END 2020-01-27 08:00 | disposition still patient (30) | LOC: PAVC 15:04 | PROVIDERS: ADMIT Internal Medicine ==

== ENCOUNTER 2020-01-27 09:00 | Inpatient (IN) | payer OTHER | END 2020-02-26 12:24 | disposition still patient (30) | LOC: PAVC 09:00 | PROVIDERS: ADMIT Internal Medicine; ATTEND Internal Medicine ==

== ENCOUNTER 2020-01-28 07:32 | Outpatient (CLI) | payer OTHER | END 2020-01-28 23:21 | disposition home or self-care (01) | LOC: LAB 07:32 | DX: E11.42 Type 2 diabetes mellitus with diabetic polyneuropathy (principal) | CPT/HCPCS: 80185; 83036 ==

== ENCOUNTER 2020-02-26 12:41 | Inpatient (IN) | payer OTHER | END 2020-03-28 09:47 | disposition still patient (30) | LOC: PAVC 12:41 | PROVIDERS: ADMIT Internal Medicine; ATTEND Internal Medicine ==

== ENCOUNTER 2020-03-28 10:01 | Inpatient (IN) | payer OTHER | END 2020-04-28 15:30 | disposition still patient (30) | LOC: PAVC 10:01 | PROVIDERS: ADMIT Internal Medicine; ATTEND Internal Medicine ==

== ENCOUNTER 2020-04-28 07:07 | Outpatient (CLI) | payer OTHER ==
[2020-04-28 08:28] LABS: POTASSIUM 4.6 mmol/L (3.6-5.2)
[2020-04-28 10:12] LABS: PLATELET COUNT 264 K/uL (152-353)
== END 2020-04-28 19:13 | disposition home or self-care (01) ==
LOC: LAB 07:07
PROVIDERS: ATTEND Internal Medicine
DX: D64.89 Other specified anemias (principal); E11.42 Type 2 diabetes mellitus with diabetic polyneuropathy; I10 Essential (primary) hypertension; E78.00 Pure hypercholesterolemia, unspecified; E86.0 Dehydration
CPT/HCPCS: 80053; 82306; 83036; 84443; 85027

== ENCOUNTER 2020-04-28 15:45 | Inpatient (IN) | payer OTHER | END 2020-05-26 11:15 | disposition still patient (30) | LOC: PAVC 15:45 | PROVIDERS: ADMIT Internal Medicine; ATTEND Internal Medicine ==

== ENCOUNTER 2020-05-26 11:39 | Inpatient (IN) | payer OTHER | END 2020-06-26 12:21 | disposition still patient (30) | LOC: PAVC 11:39 | PROVIDERS: ADMIT Internal Medicine; ATTEND Internal Medicine ==

== ENCOUNTER 2020-06-26 12:16 | Outpatient (CLI) | payer OTHER | END 2020-06-26 21:33 | disposition home or self-care (01) | LOC: LAB 12:16 | PROVIDERS: ATTEND Internal Medicine | DX: G40.909 Epilepsy, unspecified, not intractable, without status epilepticus (principal) | CPT/HCPCS: 80185 ==

== ENCOUNTER 2020-06-26 12:24 | Inpatient (IN) | payer OTHER | END 2020-07-26 11:25 | disposition still patient (30) | LOC: PAVC 12:24 | PROVIDERS: ADMIT Internal Medicine; ATTEND Internal Medicine ==

== ENCOUNTER 2020-07-26 11:39 | Inpatient (IN) | payer OTHER | END 2020-08-26 15:44 | disposition still patient (30) | LOC: PAVC 11:39 | PROVIDERS: ADMIT Internal Medicine; ATTEND Internal Medicine ==

== ENCOUNTER 2020-07-28 09:44 | Outpatient (CLI) | payer OTHER | END 2020-07-28 19:16 | disposition home or self-care (01) | LOC: LAB 09:44 | PROVIDERS: ATTEND Internal Medicine | DX: E11.42 Type 2 diabetes mellitus with diabetic polyneuropathy (principal) | CPT/HCPCS: 83036 ==

== ENCOUNTER 2020-08-26 16:46 | Inpatient (IN) | payer OTHER | END 2020-09-25 08:00 | disposition still patient (30) | LOC: PAVC 16:46 | PROVIDERS: ADMIT Internal Medicine; ATTEND Internal Medicine ==

== ENCOUNTER 2020-09-25 09:00 | Inpatient (IN) | payer OTHER | END 2020-10-26 08:00 | disposition still patient (30) | LOC: PAVC 09:00 | PROVIDERS: ADMIT Internal Medicine; ATTEND Internal Medicine ==

== ENCOUNTER 2020-10-26 09:00 | Inpatient (IN) | payer OTHER | END 2020-11-26 13:50 | disposition still patient (30) | LOC: PAVC 09:00 | PROVIDERS: ADMIT Internal Medicine; ATTEND Internal Medicine ==

== ENCOUNTER 2020-10-27 07:44 | Outpatient (CLI) | payer OTHER ==
[2020-10-27 10:41] LABS: PLATELET COUNT 330 K/uL (152-353)
[2020-10-27 11:26] LABS: POTASSIUM 4.6 mmol/L (3.6-5.2)
== END 2020-10-27 22:34 | disposition home or self-care (01) ==
LOC: LAB 07:44
PROVIDERS: ATTEND Internal Medicine
DX: E11.9 Type 2 diabetes mellitus without complications (principal); I51.7 Cardiomegaly; E78.00 Pure hypercholesterolemia, unspecified; E03.8 Other specified hypothyroidism; R48.8 Other symbolic dysfunctions
CPT/HCPCS: 80053; 80061; 82306; 83036; 84443; 85027

== ENCOUNTER 2020-11-26 14:04 | Inpatient (IN) | payer OTHER | END 2020-12-26 09:38 | disposition still patient (30) | LOC: PAVC 14:04 | PROVIDERS: ADMIT Internal Medicine; ATTEND Internal Medicine ==

== ENCOUNTER 2021-01-01 08:05 | Outpatient (CLI) | payer OTHER | END 2021-01-01 19:27 | disposition home or self-care (01) | LOC: LAB 08:05 | PROVIDERS: ATTEND Internal Medicine | DX: G40.909 Epilepsy, unspecified, not intractable, without status epilepticus (principal) | CPT/HCPCS: 80185 ==

== ENCOUNTER 2021-01-15 06:20 | Emergency (ER) | payer OTHER ==
[~2021-01-15] VITALS: Ht 154.9 cm; Wt 41.7 kg
[2021-01-15 07:03] VITALS: BP 105/46; TEMP 98.1
== END 2021-01-15 07:25 ==
LOC: ED 06:20
PROC: 0DH67UZ Insertion of Feeding Device into Stomach, Via Natural or Artificial Opening (ICD-10-PCS; principal; 2021-01-15)
DX: K94.29 Other complications of gastrostomy (principal)
CPT/HCPCS: 99284

== ENCOUNTER 2021-01-26 07:35 | Outpatient (CLI) | payer OTHER | END 2021-01-26 19:17 | disposition home or self-care (01) | LOC: LAB 07:35 | PROVIDERS: ATTEND Internal Medicine | DX: E11.42 Type 2 diabetes mellitus with diabetic polyneuropathy (principal) | CPT/HCPCS: 36415; 83036 ==

== ENCOUNTER → 2021-02-02 | Outpatient (CLI) | payer OTHER | LOC: LAB 19:56 | PROVIDERS: ATTEND Internal Medicine | DX: R87.5 Abnormal microbiological findings in specimens from female genital organs (principal) | CPT/HCPCS: 87070; 87077; 87186 ==

== ENCOUNTER 2021-02-25 12:36 | Inpatient (IN) | payer OTHER | END 2021-03-28 09:08 | disposition still patient (30) | LOC: PAVC 12:36 | PROVIDERS: ADMIT Internal Medicine; ATTEND Internal Medicine ==

== ENCOUNTER 2021-03-28 09:29 | Inpatient (IN) | payer OTHER | END 2021-04-28 08:57 | disposition still patient (30) | LOC: PAVC 09:29 | PROVIDERS: ADMIT Internal Medicine; ATTEND Internal Medicine ==

== ENCOUNTER 2021-04-05 10:16 | Outpatient (CLI) | payer OTHER ==
[2021-04-05 10:28] LABS: PLATELET COUNT 237 K/uL (152-353)
== END 2021-04-05 18:55 | disposition home or self-care (01) ==
LOC: LAB 10:16
PROVIDERS: ATTEND Internal Medicine
DX: E11.9 Type 2 diabetes mellitus without complications (principal); Z79.899 Other long term (current) drug therapy
CPT/HCPCS: 81000; 85027; 87088

== ENCOUNTER 2021-04-06 10:45 | Outpatient (CLI) | payer OTHER | END 2021-04-06 19:52 | disposition home or self-care (01) | LOC: RAD 10:45 | PROVIDERS: ATTEND Internal Medicine | DX: Z13.83 Encounter for screening for respiratory disorder NEC (principal) ==

== ENCOUNTER 2021-04-09 12:30 | Emergency (ER) | payer OTHER ==
[~2021-04-09] VITALS: Ht 154.9 cm; Wt 41.7 kg
[2021-04-09 12:30] VITALS: TEMP 99.9
[2021-04-09 13:20] LABS: PLATELET COUNT 142 K/uL (152-353)
[2021-04-09 13:33] LABS: POTASSIUM 5.2 mmol/L (3.6-5.2)
[2021-04-09 14:30] VITALS: BP 131/59
== END 2021-04-09 15:00 | disposition home or self-care (01) ==
LOC: ED 12:30
PROVIDERS: Emergency Medicine
DX: E11.65 Type 2 diabetes mellitus with hyperglycemia (principal); Z79.4 Long term (current) use of insulin; G30.9 Alzheimer's disease, unspecified; F02.80 Dementia in other diseases classified elsewhere, unspecified severity, without behavioral disturbance, psychotic disturbance, mood disturbance, and anxiety; N39.0 Urinary tract infection, site not specified; R50.9 Fever, unspecified
CPT/HCPCS: 36600; 80053; 82805; 83880; 85027; 93005; 99283

== ENCOUNTER 2021-04-10 07:54 | Outpatient (CLI) | payer OTHER | END 2021-04-10 20:32 | disposition home or self-care (01) | LOC: RAD 07:54 | PROVIDERS: ATTEND Internal Medicine | DX: R14.0 Abdominal distension (gaseous) (principal) ==

== ENCOUNTER 2021-04-28 07:36 | Outpatient (CLI) | payer OTHER ==
[2021-04-28 08:56] LABS: PLATELET COUNT 186 K/uL (152-353)
[2021-04-28 09:25] LABS: POTASSIUM 4.9 mmol/L (3.6-5.2)
== END 2021-04-28 19:21 | disposition home or self-care (01) ==
LOC: LAB 07:36
PROVIDERS: ATTEND Internal Medicine
DX: E11.42 Type 2 diabetes mellitus with diabetic polyneuropathy (principal); I10 Essential (primary) hypertension; E78.00 Pure hypercholesterolemia, unspecified; D64.89 Other specified anemias; E86.0 Dehydration
CPT/HCPCS: 80053; 82306; 83036; 84443; 85027

== ENCOUNTER 2021-04-28 13:04 | Inpatient (IN) | payer OTHER | END 2021-05-26 09:08 | disposition still patient (30) | LOC: PAVC 13:04 | PROVIDERS: ADMIT Internal Medicine; ATTEND Internal Medicine ==

== ENCOUNTER 2021-05-30 19:43 | Outpatient (CLI) | payer OTHER ==
[2021-05-30 21:30] LABS: POTASSIUM 4.5 mmol/L (3.6-5.2)
[2021-05-30 21:31] LABS: PLATELET COUNT 172 K/uL (152-353)
== END 2021-05-30 19:58 | disposition home or self-care (01) ==
LOC: LAB 19:43
PROVIDERS: ATTEND Internal Medicine
DX: U07.1 COVID-19 (principal); Z79.899 Other long term (current) drug therapy; R06.02 Shortness of breath
CPT/HCPCS: 36415; 80053; 81000; 83605; 83880; 85007; 85027; 87040; 87077; 87086; 87088; 87186

== ENCOUNTER 2021-06-02 09:48 | Emergency (ER) | payer OTHER ==
[~2021-06-02] VITALS: Ht 154.9 cm; Wt 41.7 kg
[2021-06-02 09:52] VITALS: TEMP 98.9
[2021-06-02 10:54] LABS: POTASSIUM 4.3 mmol/L (3.6-5.2)
[2021-06-02 10:58] LABS: PARTIAL THROMBOPLASTIN TIME 24.4 SECONDS (24.5-33.6)
[2021-06-02 11:17] LABS: PLATELET COUNT 215 K/uL (152-353)
[2021-06-02 12:30] VITALS: BP 145/68
== END 2021-06-02 13:42 | disposition short-term general hospital (02) ==
LOC: ED 09:48
PROVIDERS: Hospitalist
PROC: 0T9B70Z Drainage of Bladder with Drainage Device, Via Natural or Artificial Opening (ICD-10-PCS; principal; 2021-06-02)
DX: U07.1 COVID-19 (principal); J12.82 Pneumonia due to coronavirus disease 2019; J93.83 Other pneumothorax
CPT/HCPCS: 36415; 36600; 51702; 80053; 80185; 81000; 82550; 82805; 83605; 83880; 84484; 85027; 85610; 85730; 87040; 87635; 93005; 96360; 96365; 96366; 99284; J1956; U0003